=== PATIENT | female | born 1970 | race Hispanic/Latino ===

== ENCOUNTER 2022-07-31 11:20 | Emergency (ER) | payer BC ==
[~2022-07-31] VITALS: Ht 157.5 cm; Wt 76.7 kg
[2022-07-31 11:34] VITALS: BP 185/108
== END 2022-07-31 11:49 | disposition left against medical advice (07) ==
LOC: EDH 11:20
DX: R07.9 Chest pain, unspecified (principal); Z53.21 Procedure and treatment not carried out due to patient leaving prior to being seen by health care provider